=== PATIENT | female | born 1995 | race Hispanic/Latino ===

== ENCOUNTER 2017-07-28 21:24 | Inpatient (IN) | payer MEDICAID ==
[~2017-07-28] VITALS: Ht 160 cm; Wt 72.1 kg
[2017-07-28 22:18] LABS: HEMATOCRIT 29.9 % (36-48); MEAN CORPUSCULAR HEMOGLOBIN 30.4 pg (27.0-33.0); MEAN CORPUSCULAR HGB CONC 33.8 g/dL (32.0-36.0); MEAN CORPUSCULAR VOLUME 89.8 fL (79-99); PLATELET COUNT (AUTO) 200 K/uL (130-400); RED BLOOD CELL COUNT(AUTO) 3.33 MIL/uL (4.00-5.50); RED CELL DISTRIBUTION WIDTH 15.3 % (11.0-15.5); WHITE BLOOD COUNT (AUTO) 10.1 K/uL (4.8-10.8)
[2017-07-28 22:19] LABS: APPEARANCE,URINE Clear (CLEAR); BILIRUBIN,URINE Negative (NEGATIVE); COLOR,URINE Dark Yellow (YELLOW); GLUCOSE, URINE (UA) 250 mg/dL (NEGATIVE); KETONES,URINE Negative (NEGATIVE); LEUKOCYTE ESTERASE ,URINE Negative (NEGATIVE); NITRATE,URINE Negative (NEGATIVE); OCCULT BLOOD,URINE Negative (NEGATIVE); PH,URINE 6.5 (5.0-8.0); PROTEIN,URINE Negative (NEGATIVE); UROBILINOGEN,URINE 0.2 mg/dL (0.2-1.0)
[2017-07-28] MEDS: LACTATED RINGERS 1000ML 1,000 ML IV PRN ×2 (22:37→23:49)
[2017-07-28 22:38] LABS: BACTERIA,URINE None Seen /HPF (None Seen); MUCUS,URINE Rare LPF (None Seen); RBC,URINE 0-1 /HPF (0-1); SQUAMOUS EPITHELIAL CELL,UR Few /LPF (0-2); WBC,URINE None Seen /HPF (0-1); YEAST,URINE BUDDING None Seen /HPF (None Seen)
[2017-07-29] VITALS (11 sets, daily range): BP systolic 94–115; BP diastolic 52–77
[2017-07-29] MEDS ORDERED: BUTORPHANOL TARTRATE 2 MG/ML ONE (03:45)
[2017-07-29] MEDS ORDERED: BUTORPHANOL TARTRATE 2 MG/ML IVP ONE (03:45)
[2017-07-29] MEDS ORDERED: LACTATED RINGERS 1000ML 1,000 ML IV ONE (04:03)
[2017-07-29] MEDS ORDERED: OXYTOCIN 10 USP UNITS/ML ONE ×2 (04:03→08:13)
[2017-07-29] MEDS ORDERED: LIDOCAINE HCL 1% 20 ML VIAL ONE (04:28)
[2017-07-29] MEDS ORDERED: ACETAMINOPHEN 325 MG TAB PO PRN (05:15)
[2017-07-29] MEDS ORDERED: BENZOCAINE/LANOLIN/ALOE VERA 60 ML AEROSOL TP PRN (05:15)
[2017-07-29] MEDS ORDERED: LANOLIN 30GM OINTMENT TP PRN (05:15)
[2017-07-29] MEDS ORDERED: PNV1TABL77 PO (07:20)
[2017-07-29] MEDS: OXYTOCIN-LR 20 UNITS/1000 ML 1,000 ML IV SCH (08:20)
[2017-07-29] MEDS: DOCUSATE SODIUM 100 MG CAP PO SCH ×2 (08:40→20:33)
[2017-07-29] MEDS: IBUPROFEN 600 MG TABLET PO PRN ×3 (08:41→20:33)
[2017-07-29 14:06] LABS: HEMATOCRIT 27.9 % (36-48); MEAN CORPUSCULAR HEMOGLOBIN 29.1 pg (27.0-33.0); MEAN CORPUSCULAR HGB CONC 32.8 g/dL (32.0-36.0); MEAN CORPUSCULAR VOLUME 88.8 fL (79-99); PLATELET COUNT (AUTO) 177 K/uL (130-400); RED BLOOD CELL COUNT(AUTO) 3.14 MIL/uL (4.00-5.50); RED CELL DISTRIBUTION WIDTH 15.3 % (11.0-15.5); WHITE BLOOD COUNT (AUTO) 12.8 K/uL (4.8-10.8)
[2017-07-30 03:45] VITALS: BP 116/79
[2017-07-30] MEDS: IBUPROFEN 600 MG TABLET PO PRN ×2 (04:03→14:33)
[2017-07-30] MEDS: OXYTOCIN-LR 20 UNITS/1000 ML 1,000 ML IV SCH (05:15)
[2017-07-30 07:41] VITALS: BP 87/40
[2017-07-30] MEDS: DOCUSATE SODIUM 100 MG CAP PO SCH (09:15)
[2017-07-30 11:50] VITALS: BP 124/73
[2017-07-30 15:39] VITALS: BP 94/61
[2017-07-31 02:14] LABS: HEPATITIS Bs ANTIGEN SCREEN P Negative (Negative)
== END 2017-07-30 16:25 | disposition home or self-care (01) | DRG 560 ==
LOC: EDH 21:24 → OBSVTOIN 21:25 → LDH 21:25 → WSH 07-29 05:34
PROVIDERS: ADMIT Obstetrics & Gynecology; ATTEND Obstetrics & Gynecology
PROC: 10E0XZZ Delivery of Products of Conception, External Approach (ICD-10-PCS; principal; 2017-07-29)
PROC: 30233S1 Transfusion of Nonautologous Globulin into Peripheral Vein, Percutaneous Approach (ICD-10-PCS; 2017-07-30)
DX: O99.284 Endocrine, nutritional and metabolic diseases complicating childbirth (principal); M41.9 Scoliosis, unspecified; Z37.0 Single live birth; E07.9 Disorder of thyroid, unspecified; O99.89 Other specified diseases and conditions complicating pregnancy, childbirth and the puerperium; O34.219 Maternal care for unspecified type scar from previous cesarean delivery; N85.8 Other specified noninflammatory disorders of uterus; O70.0 First degree perineal laceration during delivery; Z83.3 Family history of diabetes mellitus; Z82.49 Family history of ischemic heart disease and other diseases of the circulatory system; Z86.19 Personal history of other infectious and parasitic diseases; Z3A.39 39 weeks gestation of pregnancy; Z28.21 Immunization not carried out because of patient refusal
CPT/HCPCS: 36415; 81001; 83033; 85027; 86592; 86850; 86900; 86901; 87340; A4351; J0595; J2590; J2791; J7120

== ENCOUNTER 2021-04-14 21:26 | Emergency (ER) | payer MEDICAID ==
[~2021-04-14] VITALS: Ht 160 cm; Wt 59.0 kg
[~2021-04-14 21:26] MED LIST: PNV1TABL77 PO
[2021-04-14] MEDS ORDERED: 0.9%NACL 1000ML 1,000 ML IV ONE ×2 (22:00→22:15)
[2021-04-14] MEDS ORDERED: PHENAZOPYRIDINE HCL 200 MG TABLET PO ONE (22:00)
[2021-04-14] MEDS ORDERED: CEFTRIAXONE 1G VIAL IVP ONE (22:00)
[2021-04-14 22:05] LABS: APPEARANCE,URINE CLOUDY (CLEAR); BASOPHILS % (AUTO) 0.3 % (0.0-5.0); BILIRUBIN,URINE NEGATIVE (NEGATIVE); COLOR,URINE YELLOW (YELLOW); EOSINOPHILS % (AUTO) 0.8 % (0.0-8.0); GLUCOSE, URINE (UA) NEGATIVE (NEGATIVE); HEMATOCRIT 33.7 % (36-48); KETONES,URINE NEGATIVE (NEGATIVE); LEUKOCYTE ESTERASE ,URINE LARGE (NEGATIVE); LYMPHOCYTES % (AUTO) 20.1 % (21.0-51.0); MEAN CORPUSCULAR HEMOGLOBIN 32.9 pg (27.0-33.0); MEAN CORPUSCULAR HGB CONC 33.8 g/dL (32.0-36.0); MEAN CORPUSCULAR VOLUME 97.1 fL (79-99); MONOCYTES % (AUTO) 6.6 % (3.0-13.0); NEUTROPHILS % (AUTO) 71.9 % (40.0-77.0); NITRATE,URINE POSITIVE (NEGATIVE); OCCULT BLOOD,URINE MODERATE (NEGATIVE); PLATELET COUNT (AUTO) 171 K/uL (130-400); PROTEIN,URINE 100 mg/dL (NEGATIVE); RED BLOOD CELL COUNT(AUTO) 3.47 MIL/uL (4.00-5.50); RED CELL DISTRIBUTION WIDTH 13.5 % (11.0-15.5); UROBILINOGEN,URINE 0.2 mg/dL (0.2-1.0); WHITE BLOOD COUNT (AUTO) 8.8 K/uL (4.8-10.8)
[2021-04-14 22:11] LABS: BACTERIA,URINE Many /HPF (None Seen); MUCUS,URINE Few LPF (None Seen); SQUAMOUS EPITHELIAL CELL,UR Few /HPF (0-2); WBC,URINE 51-100 /HPF (0-1)
[2021-04-14] MEDS ORDERED: CEFTRIAXONE 1G VIAL ONE (22:14)
[2021-04-14] MEDS ORDERED: PHENAZOPYRIDINE HCL 200 MG TABLET ONE (22:15)
[2021-04-14 22:21] LABS: CREATININE 0.7 mg/dL (0.5-1.5); POTASSIUM 3.4 mmol/L (3.5-5.1)
[2021-04-14 22:26] LABS: ALBUMIN 3.3 g/dL (3.5-5.0); BILIRUBIN,TOTAL 0.2 mg/dL (0.2-1.0)
[2021-04-14] MEDS ORDERED: PHEN-847 PO (23:16)
[2021-04-14] MEDS ORDERED: CEPH500B PO (23:16)
[2021-04-14 23:24] VITALS: BP 115/72
== END 2021-04-14 23:36 | disposition home or self-care (01) ==
LOC: EDH 21:26
DX: O23.40 Unspecified infection of urinary tract in pregnancy, unspecified trimester (principal); N39.0 Urinary tract infection, site not specified; Z3A.00 Weeks of gestation of pregnancy not specified
CPT/HCPCS: 36415; 80053; 81001; 84702; 85025; 87077; 87088; 87186; 96361; 96374; 99283; J0696; J7030